=== PATIENT | female | born 1990 | race African-American/Black ===

== ENCOUNTER 2017-05-21 19:42 | Emergency (ER) | payer SELFPAY ==
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
== END 2017-05-21 21:56 | disposition home or self-care (01) ==
LOC: SCSER 19:42
DX: S39.012A Strain of muscle, fascia and tendon of lower back, initial encounter (principal); S20.211A Contusion of right front wall of thorax, initial encounter; F17.210 Nicotine dependence, cigarettes, uncomplicated; V43.62XA Car passenger injured in collision with other type car in traffic accident, initial encounter
CPT/HCPCS: 72100

== ENCOUNTER 2020-11-07 20:43 | Emergency (ER) | END 2020-11-07 21:54 | disposition left against medical advice (07) | LOC: ERS 20:43 | DX: Z53.21 Procedure and treatment not carried out due to patient leaving prior to being seen by health care provider (principal) ==